=== PATIENT | male | born 1960 | race Caucasian/White ===

== ENCOUNTER 2017-01-06 19:26 | Emergency (ER) | payer OTHER ==
[~2017-01-06] VITALS: Ht 177.8 cm; Wt 86.9 kg
[2017-01-06 19:53] VITALS: BP 132/75
== END 2017-01-06 20:58 | disposition left against medical advice (07) ==
LOC: ED 20:52
DX: Z53.21 Procedure and treatment not carried out due to patient leaving prior to being seen by health care provider (principal)